=== PATIENT | male | born 1985 | race Caucasian/White ===

== ENCOUNTER 2017-09-12 14:59 | Emergency (ER) | payer OTHER ==
[2017-09-12 15:37] VITALS: BP 97/67
[2017-09-12] MEDS ORDERED: Lidocaine 1% 30 ML SDV INJECT ONE (15:50)
[2017-09-12] MEDS ORDERED: Bacitracin Oint 1 GM U/D Packet TOP ONE (15:50)
--- NOTE | 2017-09-12 16:13 | EDM.PDOC ---
ED HPI GENERAL MEDICAL PROBLEM - General Chief Complaint: Laceration Stated Complaint: cut his finger [phone] Time Seen by Provider: 09/12/17 15:30 Source of Information: Reports: Patient, RN, RN Notes Reviewed History Limitations: Reports: No Limitations - History of Present Illness INITIAL COMMENTS - FREE TEXT/NARRATIVE: Patient presented to the ER with complaint of cut on left pinky finger. He was using a cheese grater to grate cheese and sliced the finger. His last tetanus was 7 months ago. Onset: Today Location: Reports: Upper Extremity, Left Quality: Reports: Ache Severity: Moderate Improves with: Reports: None Worsens with: Reports: None Associated Symptoms: Reports: No Other Symptoms - Related Data Allergies Allergy/AdvReac Type Severity Reaction Status Date / Time No Known Allergies Allergy Verified 09/12/17 15:07 Home Meds: Home Meds DULoxetine [Cymbalta] 30 mg PO DAILY 09/12/17 [History] traZODone 50 mg PO BEDTIME 09/12/17 [History] Past Medical History HEENT History: Reports: Impaired Vision Cardiovascular History: Reports: None Respiratory History: Reports: Bronchitis, Recurrent, Pneumonia, Recurrent Other Respiratory History: pneumonia 2014 Gastrointestinal History: Reports: None Genitourinary History: Reports: None Musculoskeletal History: Reports: Fracture, Other (See Below) Other Musculoskeletal History: fracture of 3 ribs, sternum, collarbone, left shoulder, back, and neck. Neurological History: Reports: None Psychiatric History: Reports: Depression Endocrine/Metabolic History: Reports: None Hematologic History: Reports: None Immunologic History: Reports: None Oncologic (Cancer) History: Reports: None Dermatologic History: Reports: None - Infectious Disease History Infectious Disease History: Reports: Chicken Pox - Past Surgical History Head Surgeries/Procedures: Reports: None HEENT Surgical History: Reports: None Cardiovascular Surgical History: Reports: None Respiratory Surgical History: Reports: None GI Surgical History: Reports: Appendectomy, Hernia Repair/Other Male Surgical History: Reports: None Endocrine Surgical History: Reports: None Neurological Surgical History: Reports: None Musculoskeletal Surgical History: Reports: None Oncologic Surgical History: Reports: None Social & Family History - Family History Family Medical History: Noncontributory HEENT: Reports: None Cardiac: Reports: None Respiratory: Reports: None GI: Reports: None - Tobacco Use Smoking Status *Q: Current Every Day Smoker Years of Tobacco use: 15 Packs/Tins Daily: 1 - Caffeine Use Caffeine Use: Reports: None - Recreational Drug Use Recreational Drug Use: No ED ROS GENERAL - Review of Systems Review Of Systems: ROS reveals no pertinent complaints other than HPI. ED EXAM, SKIN/RASH Exam: See Below Exam Limited By: No Limitations General Appearance: Alert, WD/WN, No Apparent Distress Eye Exam: Bilateral Eye: Normal Inspection Ears: Normal External Exam, Normal Canal, Hearing Grossly Normal, Normal TMs Nose: Normal Inspection, Normal Mucosa, No Blood Throat/Mouth: Normal Inspection, Normal Lips, Normal Teeth, Normal Gums, Normal Oropharynx, Normal Voice, No Airway Compromise Head: Atraumatic, Normocephalic Neck: Normal Inspection, Supple, Non-Tender, Full Range of Motion Respiratory/Chest: No Respiratory Distress, Lungs Clear, Normal Breath Sounds, No Accessory Muscle Use, Chest Non-Tender Cardiovascular: Normal Peripheral Pulses, Regular Rate, Rhythm, No Edema, No Gallop, No JVD, No Murmur, No Rub GI/Abdominal: Normal Bowel Sounds, Soft, Non-Tender, No Organomegaly, No Distention, No Abnormal Bruit, No Mass (Male) Exam: Deferred Rectal (Males) Exam: Deferred Back Exam: Normal Inspection, Full Range of Motion, NT Extremities: Normal Inspection, Normal Range of Motion, Non-Tender, No Pedal Edema, Normal Capillary Refill Neurological: Alert, Oriented, CN II-XII Intact, Normal Cognition, Normal Gait, Normal Reflexes, No Motor/Sensory Deficits Psychiatric: Normal Affect, Normal Mood Skin: Other (1.5cm laceration left pinky finger) Lymphatic: No Adenopathy ED SKIN PROCEDURES - Laceration/Wound Repair Left Lateral Distal Finger Lac/Wound length In cm: 1.5 Appearance: Subcutaneous Distal NVT: Neuro & Vascular Intact Anesthetic Type: Local Local Anesthesia - Lidocaine (Xylocaine): 1% Plain Local Anesthetic Volume: 4cc Skin Prep: Chlorhexidine (Hibiciens) Exploration/Debridement/Repair: Wound Explored, In a Bloodless Field, Explored to Base, No Foreign Material Found Closed with: Sutures Suture Size: 4-0 # of Sutures: 3 Suture Type: Nylon Drain Placement: No Sterile Dressing Applied: Nurse Tetanus Status Addressed: Yes Complications: No Course - Vital Signs Last Recorded V/S: Last Vital Signs Temp 99.0 F 09/12/17 15:34 Pulse 88 09/12/17 15:34 Resp 20 09/12/17 15:34 BP 97/67 09/12/17 15:34 Pulse Ox 100 09/12/17 15:34 - Orders/Labs/Meds Meds: Medications Discontinued Medications Generic Name Dose Route Start Last Admin Trade Name Lesia PRN Reason Stop Dose Admin Bacitracin 1 dose 09/12/17 15:50 09/12/17 15:55 Bacitracin Oint 1 Gm TOP 09/12/17 15:51 1 dose ONETIME ONE Administration Lidocaine HCl 30 ml 09/12/17 15:50 09/12/17 15:55 Xylocaine-Mpf 1% INJECT 09/12/17 15:51 30 ml ONETIME ONE Administration Departure - Departure Time of Disposition: 16:12 Disposition: Home, Self-Care 01 Condition: Good Clinical Impression: Laceration - Discharge Information Instructions: Laceration Care, Adult, [id number], Stitches, Molly, or Adhesive Wound Closure, [id number], Nail Bed Injury, [id number] Forms: ED Department Discharge Additional Instructions: Keep area clean and dry Make an appointment at your primary care facility to have the sutures removed in 7-10 days.
== END 2017-09-12 16:29 | disposition home or self-care (01) ==
LOC: DL.ED 14:59
DX: S61.217A Laceration without foreign body of left little finger without damage to nail, initial encounter (principal); F17.210 Nicotine dependence, cigarettes, uncomplicated; Z79.899 Other long term (current) drug therapy; W26.8XXA Contact with other sharp object(s), not elsewhere classified, initial encounter
CPT/HCPCS: 12001; 99283

== ENCOUNTER 2018-05-12 15:08 | Emergency (ER) | payer MEDICAID, OTHER ==
[2018-05-12 15:20] VITALS: BP 115/55
--- NOTE | 2018-05-12 15:38 | EDM.PDOC ---
ED HPI GENERAL MEDICAL PROBLEM - General Chief Complaint: Lower Extremity Injury/Pain Stated Complaint: RIGHT ANKLE PAIN [id number] Time Seen by Provider: 05/12/18 15:24 Source of Information: Reports: Patient, RN, RN Notes Reviewed History Limitations: Reports: No Limitations - History of Present Illness INITIAL COMMENTS - FREE TEXT/NARRATIVE: Patient presents to ER with complaint of right ankle pain. Patient states he jumped off of a dock into [place]. Able to walk but very painful. Rates pain 8 -9/10. Onset: Today Duration: Getting Worse Location: Reports: Lower Extremity, Right Quality: Reports: Ache Severity: Moderate Improves with: Reports: None Worsens with: Reports: None Associated Symptoms: Reports: No Other Symptoms Right Ankle Pain Score (Numeric/FACES): 9 - Related Data Allergies Allergy/AdvReac Type Severity Reaction Status Date / Time No Known Allergies Allergy Verified 05/12/18 15:17 Home Meds: Home Meds traZODone 50 mg PO BEDTIME 09/12/17 [History] Past Medical History HEENT History: Reports: Impaired Vision Cardiovascular History: Reports: None Respiratory History: Reports: Bronchitis, Recurrent, Pneumonia, Recurrent Other Respiratory History: pneumonia 2014 Gastrointestinal History: Reports: None Genitourinary History: Reports: None Musculoskeletal History: Reports: Fracture, Other (See Below) Other Musculoskeletal History: fracture of 3 ribs, sternum, collarbone, left shoulder, back, and neck. Neurological History: Reports: None Psychiatric History: Reports: Depression Endocrine/Metabolic History: Reports: None Hematologic History: Reports: None Immunologic History: Reports: None Oncologic (Cancer) History: Reports: None Dermatologic History: Reports: None - Infectious Disease History Infectious Disease History: Reports: Chicken Pox - Past Surgical History Head Surgeries/Procedures: Reports: None HEENT Surgical History: Reports: None Cardiovascular Surgical History: Reports: None Respiratory Surgical History: Reports: None GI Surgical History: Reports: Appendectomy, Hernia Repair/Other Male Surgical History: Reports: None Endocrine Surgical History: Reports: None Neurological Surgical History: Reports: None Musculoskeletal Surgical History: Reports: None Oncologic Surgical History: Reports: None Social & Family History - Family History Family Medical History: Noncontributory HEENT: Reports: None Cardiac: Reports: None Respiratory: Reports: None GI: Reports: None - Tobacco Use Smoking Status *Q: Current Every Day Smoker Years of Tobacco use: 16 Packs/Tins Daily: 0.5 Second Hand Smoke Exposure: No - Caffeine Use Caffeine Use: Reports: Soda - Recreational Drug Use Recreational Drug Use: No Review of Systems - Review of Systems Review Of Systems: ROS reveals no pertinent complaints other than HPI. ED EXAM, GENERAL - Physical Exam Exam: See Below Exam Limited By: No Limitations General Appearance: Alert, WD/WN, No Apparent Distress Eye Exam: Bilateral Eye: EOMI, Normal Inspection, PERRL Ears: Normal External Exam, Normal Canal, Hearing Grossly Normal, Normal TMs Nose: Normal Inspection, Normal Mucosa, No Blood Throat/Mouth: Normal Inspection, Normal Lips, Normal Teeth, Normal Gums, Normal Oropharynx, Normal Voice, No Airway Compromise Head: Atraumatic, Normocephalic Neck: Normal Inspection, Supple, Non-Tender, Full Range of Motion Respiratory/Chest: Other (decreased lung sounds) Cardiovascular: Normal Peripheral Pulses, Regular Rate, Rhythm, No Edema, No Gallop, No JVD, No Murmur, No Rub GI/Abdominal: Normal Bowel Sounds, Soft, Non-Tender, No Organomegaly, No Distention, No Abnormal Bruit, No Mass (Male) Exam: Deferred Rectal (Males) Exam: Deferred Back Exam: Normal Inspection, Full Range of Motion, NT Extremities: Other (rightankle swelling/tenderness) Neurological: Alert, Oriented, CN II-XII Intact, Normal Cognition, Normal Gait, Normal Reflexes, No Motor/Sensory Deficits Psychiatric: Normal Affect, Normal Mood Skin Exam: Warm, Dry, Intact, Normal Color, No Rash Lymphatic: No Adenopathy Course - Vital Signs Last Recorded V/S: Last Vital Signs Temp 98.4 F 05/12/18 15:18 Pulse 80 05/12/18 15:18 Resp 15 05/12/18 15:18 BP 115/55 L 05/12/18 15:18 Pulse Ox 100 05/12/18 15:18 - Radiology Interpretation Free Text/Narrative:: Right ankle x-ray: Acute spiral nondisplaced distal diaphyseal fracture of the right fibula. See rad report. Departure - Departure Time of Disposition: 16:15 Disposition: Home, Self-Care 01 Condition: Fair Clinical Impression: Fracture of fibula alone - Discharge Information *PRESCRIPTION DRUG MONITORING PROGRAM REVIEWED*: No *COPY OF PRESCRIPTION DRUG MONITORING REPORT IN PATIENT [place]: No Instructions: Fibular Ankle Fracture Treated With or Without Immobilization, Adult, Cast or Splint Care, Adult Forms: ED Department Discharge Additional Instructions: You have an appointment with Dr. Benavides on May 19 at 11:40 am [facility] [address] [phone] May use Tylenol and/or ibuprofen as directed for pain Elevate the area as tolerated Ice the area as tolerated Rest
--- NOTE | 2018-05-12 15:52 | CR ---
Clinical history: 32-year-old male injured right ankle ([place]umped [place] Interpretation: Abnormal. Acute spiral nondisplaced distal diaphyseal fracture of the right fibula. Soft tissue swelling over the lateral malleolus and small ankle joint effusion but... no sign of other fracture or tibiotalar dislocation right ankle. No foreign bodies. No medial spurs.
== END 2018-05-12 16:27 | disposition home or self-care (01) ==
LOC: DL.ED 15:08
DX: S82.444A Nondisplaced spiral fracture of shaft of right fibula, initial encounter for closed fracture (principal); F17.210 Nicotine dependence, cigarettes, uncomplicated; W18.30XA Fall on same level, unspecified, initial encounter
CPT/HCPCS: 73610-RT; 99284

== ENCOUNTER 2019-01-13 18:52 | Emergency (ER) | payer BC, OTHER ==
[2019-01-13] MEDS ORDERED: Gentamicin 0.3% Ophth Soln 5 ML Bottle EYERT ONE (18:53)
[2019-01-13] MEDS ORDERED: Tetracaine HCl/PF 0.5% 4 ML Bottle EYERT ONE (19:16)
[2019-01-13] MEDS ORDERED: Fluorescein 1 MG Ophth Strip EYERT ONE (19:16)
[2019-01-13 19:40] VITALS: BP 122/74
--- NOTE | 2019-01-13 20:06 | EDM.PDOC ---
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 Sensitive to light and tearing. Right Eye Pain Score (Numeric/FACES): 3 - Related Data Allergies Allergy/AdvReac Type Severity Reaction Status Date / Time No Known Allergies Allergy Verified 01/13/19 19:39 Home Meds: Home Meds traZODone 50 mg PO BEDTIME 09/12/17 [History] Varenicline Tartrate [Chantix] 1 tab PO DAILY 01/13/19 [History] Past Medical History HEENT History: Reports: Impaired Vision Cardiovascular History: Reports: None Respiratory History: Reports: Bronchitis, Recurrent, Pneumonia, Recurrent Other Respiratory History: pneumonia 2014 Gastrointestinal History: Reports: None Genitourinary History: Reports: None Musculoskeletal History: Reports: Fracture, Other (See Below) Other Musculoskeletal History: fracture of 3 ribs, sternum, collarbone, left shoulder, back, and neck. Neurological History: Reports: None Psychiatric History: Reports: Depression Endocrine/Metabolic History: Reports: None Hematologic History: Reports: None Immunologic History: Reports: None Oncologic (Cancer) History: Reports: None Dermatologic History: Reports: None - Infectious Disease History Infectious Disease History: Reports: Chicken Pox - Past Surgical History Head Surgeries/Procedures: Reports: None HEENT Surgical History: Reports: None Cardiovascular Surgical History: Reports: None Respiratory Surgical History: Reports: None GI Surgical History: Reports: Appendectomy, Hernia Repair/Other Male Surgical History: Reports: None Endocrine Surgical History: Reports: None Neurological Surgical History: Reports: None Musculoskeletal Surgical History: Reports: None Oncologic Surgical History: Reports: None Social & Family History - Family History Family Medical History: Noncontributory HEENT: Reports: None Cardiac: Reports: None Respiratory: Reports: None GI: Reports: None - Tobacco Use Smoking Status *Q: Unknown Ever Smoked - Caffeine Use Caffeine Use: Reports: Soda - Recreational Drug Use Recreational Drug Use: No ED ROS GENERAL - Review of Systems Review Of Systems: ROS reveals no pertinent complaints other than HPI. ED EXAM GENERAL W FULL EYE - Physical Exam Exam: See Below Exam Limited By: No Limitations General Appearance: Alert, No Apparent Distress Eye Exam: Bilateral Eye: EOMI, PERRL Eyelids: Bilateral: Normal Appearance Conjunctiva & Sclera: Right: Injected Cornea Exam: Right: Corneal Abrasion (7 o clock), Examined with Flourescein Extraocular Movements: Bilateral: Intact Pupillary Reaction: Bilateral: Brisk Ears: Normal External Exam Throat/Mouth: Normal Voice Respiratory/Chest: No Respiratory Distress Cardiovascular: Regular Rate, Rhythm Extremities: Normal Range of Motion Neurological: Alert, Oriented, Normal Cognition Course - Vital Signs Last Recorded V/S: Last Vital Signs Temp 99.0 F 01/13/19 19:39 Pulse 70 01/13/19 19:39 Resp 14 01/13/19 19:39 BP 122/74 01/13/19 19:39 Pulse Ox 98 01/13/19 19:39 - Orders/Labs/Meds Meds: Medications Discontinued Medications Generic Name Dose Route Start Last Admin Trade Name Lesia PRN Reason Stop Dose Admin Fluorescein Sodium 1 mg 01/13/19 19:16 01/13/19 20:13 Ful-Chelsie EYERT 01/13/19 19:17 1 mg ONETIME ONE Administration Tetracaine HCl 1 ml 01/13/19 19:16 01/13/19 20:13 Tetracaine 0.5% Steri-Unit Helen EYERT 01/13/19 19:17 1 drop ASDIRECTED ONE Administration Departure - Departure Time of Disposition: 20:28 Disposition: Home, Self-Care 01 Condition: Good Clinical Impression: Corneal abrasion Qualifiers: Encounter type: initial encounter Laterality: right Qualified Code(s): S05.01XA - Injury of conjunctiva and corneal abrasion without foreign body, right eye, initial encounter - Discharge Information Instructions: Corneal Abrasion Forms: ED Department Discharge Additional Instructions: dark lenses avoid bright light gentamycin eye drops 2 to right eye 4 times daily for 5 days follow up in eye clinic on wednesday recheck sooner if increased pain, redness, change in vision
== END 2019-01-13 20:35 | disposition home or self-care (01) ==
LOC: DL.ED 18:52
DX: S05.01XA Injury of conjunctiva and corneal abrasion without foreign body, right eye, initial encounter (principal); F32.9 Major depressive disorder, single episode, unspecified; Z79.899 Other long term (current) drug therapy; W89.0XXA Exposure to welding light (arc), initial encounter
CPT/HCPCS: 99283; A9270-GY